=== PATIENT | female | born 1995 | race Caucasian/White ===

== ENCOUNTER 2025-05-08 01:04 | Emergency (ER) | payer OTHER, SELFPAY ==
--- NOTE | 2025-05-08 01:58 | EDPHYS ---
Physician Documentation [facility] Name: Gena Lopez Age: 29 yrs Sex: Female : 1995 Arrival Date: 05/08/2025 Time: 01:04 Bed 10 Private MD: ED Physician Wilber Rea HPI: 05/08 01:58 This 29 yrs old Female presents to ER via Ambulatory with complaints of bug in left ear.ms3 02:05 29-year-old female with no past medical history presents to the emergency department ms3 for throat and her left ear that occurred at 11:30 PM. Patient states the hill crawled in her ear as she was putting on her her silk. Patient placed hydroperoxide and oil in her ear prior to arrival to the emergency department. 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 - Infectious Disease History:: Denies. - Social history:: Smoking status: Patient denies any tobacco usage or history of. ROS: 02:05 Constitutional: Negative for fever, and chills. Cardiovascular: Negative for chest ms3 pain, and palpitations. Respiratory: Negative for shortness of breath, cough, wheezing, and pleuritic chest pain, Abdomen/GI: Negative for abdominal pain, nausea, vomiting, diarrhea, and constipation, 02:05 ENT: Positive for foreign body sensation, Exam: 02:05 Constitutional: This is a well developed, well nourished patient who is awake, alert, ms3 and in no acute distress. Cardiovascular: Regular rate and rhythm with a normal S1 and S2. No gallops, murmurs, or rubs. Normal PMI, no JVD. No pulse deficits. Respiratory: Lungs have equal breath sounds bilaterally, clear to auscultation and percussion. No rales, rhonchi or wheezes noted. No increased work of breathing, no retractions or nasal flaring. Abdomen/GI: Soft, non-tender, with normal bowel sounds. 02:05 ENT: Ear canal(s): foreign body, an insect, in the left external ear canal, Vital Signs: 01:52 BP 138 / 68; Pulse 77; Resp 16; Temp 97; Pulse Ox 99% ; Weight 81.65 kg; Height 5 ft. 2 vc1 in. ; Pain 0/10; 01:52 Body Mass Index 32.92 (81.65 kg, 157.48 cm) vc1 01:52 Pain Scale: Adult vc1 Procedures: 02:05 Foreign Body Removal: an insect, from the left ear canal, by using alligator clamps, ms3 using a curette, normal saline irrigation, The patient tolerated the removal well. MDM: 01:57 Medical Screening Exam initiated ms3 02:05 Differential diagnosis: Insect in left ear versus cerumen. Data reviewed: vital signs, ms3 nurses notes, and as a result, I will discharge patient. Counseling: I had a detailed discussion with the patient and/or guardian regarding the historical points, exam findings, and any diagnostic results supporting the discharge/admit diagnosis, the need for outpatient follow up, to return to the emergency department if symptoms worsen or persist or if there are any questions or concerns that arise at home. ED course: Insect removed from left ear canal. Minimal bleeding of the inferior canal after curette used. Tympanic membrane remains intact. Patient to follow-up with Dr. Ortiz as needed. All questions were answered. Return precautions discussed include worsening symptoms, or any other concerns.. Administered Medications: No medications were administered Disposition Summary: 05/08/25 01:57 Discharge Ordered Notes: Location: Home ms3 Condition: Stable ms3 Diagnosis - Foreign body in left ear ms3 Followup: ms3 - With: Cirilo Ortiz DO - When: As needed - Reason: Discharge Instructions: - Discharge Summary Sheet ms3 - Ear Foreign Body, [id number] ms3 Forms: - Medication Reconciliation Form ms3 - Antibiotic Education ms3 - Prescription Opioid Use ms3 - Patient Portal Instructions ms3 - Leadership Thank You Letter ms3 Signatures: Wilber Rea DO DO ms3 Leeann Mario, RN RN vc1
--- NOTE | 2025-05-08 01:58 | ER ---
Nurse's Notes [facility] Name: Gena Lopez Age: 29 yrs Sex: Female : 1995 Arrival Date: 05/08/2025 Time: 01:04 Bed 10 Private MD: Diagnosis: Foreign body in left ear Presentation: 05/08 01:52 Chief complaint: Patient states: bug in left ear. Coronavirus screen: Client denies vc1 travel out of the [place] in the last 14 days. At this time, the client does not indicate any symptoms associated with coronavirus-19. Ebola Screen: Patient negative for fever greater than or equal to 101.5 degrees Fahrenheit, and additional compatible Ebola Virus Disease symptoms Patient denies exposure to infectious person. Patient denies travel to an Ebola-affected area in the 21 days before illness onset. No symptoms or risks identified at this time. Initial Sepsis Screen: Does the patient meet any 2 criteria? No. Patient's initial sepsis screen is negative. Does the patient have a suspected source of infection? No. Patient's initial sepsis screen is negative. Risk Assessment: Do you want to hurt yourself or someone else? Patient reports no desire to harm self or others. Onset of symptoms was May 08, 2025. 01:52 Method Of Arrival: Ambulatory vc1 01:52 Acuity: FRANCO 4 vc1 Triage Assessment: 01:58 General: Appears in no apparent distress. uncomfortable, Behavior is calm, cooperative, vc1 appropriate for age. Pain: Complains of pain in left ear. EENT: Ear canal w/ foreign body noted from left ear. Neuro: Level of Consciousness is awake, alert, obeys commands, Oriented to person, place, time, situation, Appropriate for age. Cardiovascular: Heart tones S1 S2 present Capillary refill < 3 seconds Patient's skin is warm and dry. Respiratory: Airway is patent Respiratory effort is even, unlabored, Respiratory pattern is regular, symmetrical, Breath sounds are clear bilaterally. GI: No deficits noted. No signs and/or symptoms were reported involving the gastrointestinal system. : No deficits noted. No signs and/or symptoms were reported regarding the genitourinary system. Derm: Skin is intact, is healthy with good turgor, Skin is dry, Skin is normal. Musculoskeletal: Circulation, motion, and sensation intact. Range of motion: intact in all extremities. 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 - Infectious Disease History:: Denies. - Social history:: Smoking status: Patient denies any tobacco usage or history of. Screenin:57 [facility] ED Fall Risk Assessment (Adult) History of falling in the last 3 months, vc1 including since admission No falls in past 3 months (0 pts) Confusion or Disorientation No (0 pts) Intoxicated or Sedated No (0 pts) Impaired Gait No (0 pts) Mobility Assist Device Used No (0 pt) Altered Elimination No (0 pt) Score/Fall Risk Level 0 - 2 = Low Risk Oriented to surroundings, Maintained a safe environment, Educated pt \T\ family on fall prevention, incl call for assistance when getting out of bed, Hourly rounding (assess needs \T\ fall precautionary measures) done. Abuse screen: Denies threats or abuse. Nutritional screening: No deficits noted. Tuberculosis screening: No symptoms or risk factors identified. Assessment: 02:02 Reassessment: See triage assessment. vc1 Vital Signs: 01:52 BP 138 / 68; Pulse 77; Resp 16; Temp 97; Pulse Ox 99% ; Weight 81.65 kg; Height 5 ft. 2 vc1 in. ; Pain 0/10; 01:52 Body Mass Index 32.92 (81.65 kg, 157.48 cm) vc1 01:52 Pain Scale: Adult vc1 ED Course: 01:09 Patient arrived in ED. gm2 01:15 Wilber Rea DO is Attending Physician. ms3 01:56 Triage completed. vc1 01:57 Cirilo Ortiz DO is Referral Physician. ms3 01:57 Arm band placed on right wrist. vc1 01:58 Patient has correct armband on for positive identification. Bed in low position. vc1 Provided Education on: Plan of care. 02:00 Assisted provider with: removal of bug from left ear. Patient did not have IV access vc1 during this emergency room visit. Administered Medications: No medications were administered Medication: 01:58 VIS not applicable for this client. vc1 Outcome: 01:57 Discharge ordered by . ms3 02:08 Discharged to home ambulatory, with family, vc1 02:08 Condition: stable 02:08 Discharge instructions given to patient, Instructed on discharge instructions, follow up and referral plans. Demonstrated understanding of instructions, follow-up care, 02:08 Patient left the ED. vc1 Signatures: Wilber Rea DO DO ms3 Leeann Mario RN RN vc1 Linda De La Garza 2
[2025-05-08 02:28] VITALS: BP 138/68; TEMP 97; O2SAT 99
== END 2025-05-08 02:08 | disposition home or self-care (01) ==
LOC: ER 01:04
DX: T16.2XXA Foreign body in left ear, initial encounter (principal)
CPT/HCPCS: 99282